=== PATIENT | male | born 1990 | race Caucasian/White ===

== ENCOUNTER 2024-06-09 13:03 | Emergency (ER) | payer MEDICAID, SELFPAY ==
[2024-06-09 13:21] VITALS: BP 167/94; PULSE 104; RESP 18; TEMP 36.8; O2SAT 97; BMI 36.4
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
[2024-06-09] MEDS: KETOROLAC INJ 30 MG/ML VIAL IVP (17:51)
[2024-06-09 17:56] VITALS: BP 143/81; PULSE 74; RESP 18; TEMP 36.7; O2SAT 95
== END 2024-06-09 19:10 | disposition home or self-care (01) ==
PROVIDERS: Emergency Provider Emergency Medicine; PCP Family Medicine
DX: S13.4XXA Sprain of ligaments of cervical spine, initial encounter (principal); S49.92XA Unspecified injury of left shoulder and upper arm, initial encounter; S69.92XA Unspecified injury of left wrist, hand and finger(s), initial encounter; S09.90XA Unspecified injury of head, initial encounter; S29.9XXA Unspecified injury of thorax, initial encounter; S39.91XA Unspecified injury of abdomen, initial encounter; V89.2XXA Person injured in unspecified motor-vehicle accident, traffic, initial encounter
CPT/HCPCS: 70450; 71260; 72125; 73030; 73130; 74177; 96374; 99285; A4649; J1885; Q9967